=== PATIENT | male | born 1950 | race African-American/Black ===

== ENCOUNTER 2017-02-14 13:44 | Emergency (ER) | payer OTHER ==
[~2017-02-14] VITALS: Ht 180.3 cm; Wt 97.5 kg
[2017-02-14] VITALS (7 sets, daily range): BP systolic 117–153; BP diastolic 70–100
[~2017-02-14 13:44] MED LIST: ASPIRIN81 MG ORAL; B-12500 MC1 PO; COMBIGAN EYE DRO5 ML BOTH EYES; LATANOPROST2.5 ML BOTH EYES
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
[2017-02-14] MEDS: Nitroglycerin Subl 0.4mg tab (Bottle Of 25) SL PRN ×2 (14:10→14:26)
[2017-02-14] MEDS ORDERED: Enoxaparin 100mg Inj SUBQ ONE (14:15)
[2017-02-14 14:16] LABS: MEAN CORPUSCULAR HEMOGLOBIN 30.1 PG (27.0-31.0); MEAN CORPUSCULAR HGB CONC 33.6 G/DL (32.0-36.0); MEAN CORPUSCULAR VOLUME 90 FL (80-99); MEAN PLATELET VOLUME 7.8 FL (6.5-10.1); PLATELET COUNT 171 K/UL (150-450); RED CELL DISTRIBUTION WIDTH 12.3 % (11.6-14.8); WHITE BLOOD COUNT 2.8 K/UL (4.8-10.8)
[2017-02-14] MEDS ORDERED: Aspirin Baby 81mg ORAL ONE (14:30)
[2017-02-14 14:32] LABS: TROPONIN I < 0.30 ng/mL (<=0.30)
[2017-02-14 14:35] LABS: ALANINE AMINOTRANSFERASE 20 U/L (3-41); ALBUMIN/GLOBULIN RATIO 1.5 (1.0-2.7); ANION GAP 14 (5-15); ASPARTATE AMINO TRANSFERASE 22 U/L (5-40); CALCIUM 8.9 mg/dL (8.6-10.2); CARBON DIOXIDE 25 mEQ/L (20-30); CHLORIDE 101 mEQ/L (98-107); CREATININE 1.1 mg/dL (0.7-1.2); GLOMERULAR FILTRATION RATE > 60 mL/min (>60); HEMOLYSIS 16; POTASSIUM 3.8 mEQ/L (3.4-4.9); SODIUM 140 mEQ/L (135-145); TOTAL PROTEIN 6.5 g/dL (6.6-8.7)
[2017-02-14 14:39] LABS: BAND NEUTROPHILS % (MANUAL) 0 % (0-8); BASOPHILS % (MANUAL) 0 % (0-2); EOSINOPHILS % (MANUAL) 3 % (0-3); LYMPHOCYTES % (MANUAL) 39 % (20-45); NEUTROPHILS % (MANUAL) 47 % (45-75); PLATELET ESTIMATE ADEQUATE; PLATELET MORPHOLOGY NORMAL; TOTAL CELLS COUNTED 100
[2017-02-14 14:46] LABS: CKMB 3.6 ng/mL (< 6.7)
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
[2017-02-14] MEDS ORDERED: Morphine Sulfate 2mg/ml Inj IVP ONE (16:45)
[2017-02-14 18:16] LABS: TROPONIN I < 0.30 ng/mL (<=0.30)
--- NOTE | 2017-02-15 18:35 | Cardiology Report ---
APPROVED REPORT EKG Measurement Heart [id number] Normal sinus rhythm Minimal voltage criteria for LVH, may be normal variant T wave abnormality, consider inferolateral ischemia Abnormal ECG
== END 2017-02-14 19:30 | disposition short-term general hospital (02) ==
LOC: EMR 14:14 → 2E 14:28 → UNDOADMIN 14:28 → EDBEDREQ 15:31
DX: R07.9 Chest pain, unspecified (principal); I24.9 Acute ischemic heart disease, unspecified; I10 Essential (primary) hypertension
CPT/HCPCS: 36415; 71010; 80053; 82550; 82553; 83880; 84484; 85007; 85025; 93005; 96374; 99285; J1650; J2270